=== PATIENT | male | born 1975 | race Caucasian/White ===

== ENCOUNTER 2018-02-16 07:16 | Day surgery (SDC) | payer OTHER ==
[~2018-02-16] VITALS: Ht 172.7 cm; Wt 81.6 kg
--- NOTE | ~2018-02-16 | OP ---
PATIENT NAME: BRANDON POWER MEDICAL RECORD: [id number] :75 LOCATION:D.OPS ADMISSION DATE: SURGEON: TREV AGUSTIN MD DATE OF OPERATION: 02/16/2018 PREOPERATIVE DIAGNOSES: 1. Symptomatic gallbladder polyp. 2. Hepatitis C. POSTOPERATIVE DIAGNOSES: 1. Symptomatic gallbladder polyp. 2. Hepatitis C. 3. Hepatomegaly. PROCEDURES: 1. Laparoscopic cholecystectomy. 2. A 14-gauge core needle liver biopsies. 3. Intraoperative cholangiogram without immediate surgeon interpretation. SURGEON: Trev Agustin MD VOICE PATHOLOGIST: None. BLOOD LOSS: Minimal. ANESTHESIA: General. COMPLICATIONS: None. The indication for the liver biopsy was hepatomegaly as well as hepatitis C. I noted no gross evidence of cirrhosis. The risks, possible complications, and alternatives to the procedure were explained to the patient. He elected to proceed. I specifically told him that his pain may not resolve with a cholecystectomy. OPERATIVE COURSE: The patient was conveyed to the operating room electively on 02/16/2018. General anesthesia was induced by the anesthesia staff. The abdomen was sterilely prepped and draped. A small skin kapil was accomplished in the left upper quadrant. A Veress needle was inserted through the skin kapil into the peritoneal cavity. CO2 insufflation was begun. Once a sufficient pneumoperitoneum had been achieved, a 5 mm trocar was inserted through an incision in the right upper quadrant. Under direct internal vision utilizing a television camera, a 12 mm trocar was inserted through an incision at the umbilicus. Another 5 mm trocar was inserted through an incision in the epigastrium. Another 5 mm trocar was inserted far laterally in the right upper quadrant. During insertion of the Veress needle and all trocars, there appeared to have been no injury to the bowels, any intraperitoneal or retroperitoneal structures. The indication for the liver biopsy was hepatomegaly. Under laparoscopic guidance, I percutaneously accessed the right upper quadrant utilizing a 14-gauge core needle liver biopsy device. Cores were obtained over the convexity of the liver. The biopsy sites were made hemostatic with the electrocautery. I then advanced a cholangiogram trocar. I punctured the fundus OPERATIVE REPORT [id number] BRANDON POWER of the gallbladder. I aspirated bile. I then injected dye. Under real time fluoroscopy, static fluoroscopic images were obtained. These are cholangiographic images that are sent to the radiologist for interpretation. I then aspirated bile and removed the cholangiogram trocar. The gallbladder was grasped and retracted cephalad. The infundibulum was grasped and retracted laterally. The critical view was identified. Blunt dissection was begun on the triangle of Calot. One cystic artery and one cystic duct were identified. These were clipped multiply and divided between clips. The gallbladder was then excised from its bed in the liver. It was placed within a bag retrieval device and was withdrawn through the umbilical fascial defect. The 12 mm trocar was replaced and the abdomen reinsufflated. I irrigated and aspirated in the right upper quadrant. There was no bleeding even at low pressure of 8. Utilizing the Corey-Constantin suture closure device and a 0 Vicryl suture, the umbilical fascia was closed. All the trocars were removed and the abdomen desufflated. The skin at the umbilicus was closed with interrupted 4-0 Vicryl Rapide sutures. The other skin incisions were closed with interrupted intracuticular 3-0 Vicryls. Benzoin and Steri-Strips were applied. The patient was then extubated and conveyed to the post-anesthesia care unit, where he was in stable condition. He will be dismissed with an analgesia script. There is no need for the patient to follow up with me in the office unless he develops a complication related to this operative procedure. The sutures at the umbilicus should fall out on their own. TRANSINT:[id number] Voice Confirmation ID: [id number] DOCUMENT ID: [id number] TREV AGUSTIN MD at 1047 CC: [id number] DICTATION DATE: 02/16/18 1424 CHILLER HAND: 02/16/18 1439 [facility] 02/16/18 [place] [id number]
[2018-02-16] MEDS ORDERED: ZOFRAN4 MG PO (08:22)
[2018-02-16] MEDS ORDERED: OMEPRAZOLE20 M1 PO (08:22)
[2018-02-16] MEDS ORDERED: BENTYL10 MG PO (08:22)
[2018-02-16] MEDS ORDERED: ZANTAC150 MG PO (08:23)
[2018-02-16 08:28] VITALS: BP 131/85; Ht 172.7 cm; Wt 81.6 kg
== END 2018-02-16 17:36 ==
LOC: D.OPS 07:16
DX: K81.1 Chronic cholecystitis (principal); B19.20 Unspecified viral hepatitis C without hepatic coma; K76.0 Fatty (change of) liver, not elsewhere classified; Z01.812 Encounter for preprocedural laboratory examination

== ENCOUNTER → 2018-09-20 06:38 | Outpatient (CLI) | payer OTHER ==
[2018-02-16 08:28] VITALS: BMI 27.4
[~2018-09-20 06:38] MED LIST: BENTYL10 MG PO; OMEPRAZOLE20 M1 PO; ZANTAC150 MG PO; ZOFRAN4 MG PO
== END | disposition home or self-care (01) ==
LOC: D.OPS 06:38
PROVIDERS: ATTEND Surgery
DX: K21.9 Gastro-esophageal reflux disease without esophagitis (principal)

== ENCOUNTER 2018-10-15 05:56 | Inpatient (IN) | payer MEDICAID ==
[2018-10-15] MEDS ORDERED: CLARITIN 10 MG10 MG PO (07:25)
[2018-10-15 07:36] VITALS: BP 121/71
[2018-10-15 07:37] LABS: HEMATOCRIT 44.5 % (42.0-54.0); HEMOGLOBIN 15.9 g/dL (13.5-17.5); MCH 30.9 pg (26.0-34.0); MCHC 35.7 g/dL (31.0-37.0); MCV 86.4 fL (80.0-100.0); MEAN PLATELET VOLUME 9.8 fL (7.4-10.4); RBC 5.15 10x6/uL (4.20-6.10); RDW 13.1 % (11.5-14.5); WBC 6.2 10x3/uL (4.8-10.8)
[2018-10-15 07:49] LABS: ANION GAP 15.9 mmol/L (8-16); BILIRUBIN - TOTAL 0.43 mg/dL (0.2-1.3); CALCIUM 9.2 mg/dL (8.5-10.1); CARBON DIOXIDE 23.5 mmol/L (21.0-32.0); CREATININE - SERUM 1.2 mg/dL (0.6-1.3); POTASSIUM - SERUM 4.4 mmol/L (3.5-5.1); PROTEIN - SERUM 7.9 g/dL (6.4-8.2)
[2018-10-15 17:06] VITALS: BP 129/75
--- NOTE | 2018-10-15 19:58 | NUR ---
PATIENT RESTING IN BED WITH GUARD AT BEDSIDE. BROUGHT PATIENT JELLO AND WATER PER HIS REQUEST. PATIENT AND GUARD DENY OTHER NEEDS AT THIS TIME. BED IN LOWEST POSITION AND CALL LIGHT WITHIN REACH. ENCOURAGED THE PATIENT TO CALL IF HE HAS NEEDS. WILL CONTINUE TO MONITOR.
[2018-10-15 20:00] VITALS: BP 118/73
[2018-10-16] VITALS: BP 123/76
[2018-10-16 04:00] VITALS: BP 124/83
[2018-10-16 05:26] LABS: BASOPHILS 0.1 % (0-2); EOSINOPHILS 0 % (0-7); HEMATOCRIT 39.2 % (42.0-54.0); HEMOGLOBIN 13.7 g/dL (13.5-17.5); IMMATURE GRANULOCYTES 0.4 % (0-5); LYMPHOCYTES 12.8 % (15-50); MCH 30.4 pg (26.0-34.0); MCHC 34.9 g/dL (31.0-37.0); MCV 86.9 fL (80.0-100.0); MEAN PLATELET VOLUME 9.8 fL (7.4-10.4); MONOCYTES 12.2 % (2-11); NEUTROPHILS 74.5 % (40-80); PLATELET COUNT 209 10x3/uL (130-400); RBC 4.51 10x6/uL (4.20-6.10); RDW 13.5 % (11.5-14.5)
[2018-10-16 06:12] LABS: ALBUMIN 3.6 g/dL (3.4-5.0); ANION GAP 13.8 mmol/L (8-16); BILIRUBIN - TOTAL 0.84 mg/dL (0.2-1.3); CALCIUM 8.4 mg/dL (8.5-10.1); CARBON DIOXIDE 25.1 mmol/L (21.0-32.0); CREATININE - SERUM 1.3 mg/dL (0.6-1.3); POTASSIUM - SERUM 3.9 mmol/L (3.5-5.1)
--- NOTE | 2018-10-16 07:05 | NUR ---
PATIENT RECIEVED RESTING IN BED. DAY ONE POST OP LAP HERNIA REPAIR. BANDAIDS C/D/I TO LAP SITES X6. PATIENT TOLERATING CLEAR LIQUIDS WELL. MORPHINE EDUCATION TRAINER FOR PAIN CONTROL. 02 SAT 98% ON RA. CL IN REACH, GUARD AT BEDSIDE
[2018-10-16 09:14] VITALS: BP 119/76
[2018-10-16] MEDS ORDERED: HYDROCODON-ACE1 EAC7 PO (11:31)
--- NOTE | 2018-10-16 14:00 | NUR ---
IV REMOVED WITH NO REDNESS OR EDEMA AT SITE. DISCHARGE INSTRUCTIONS GIVEN TO PATIENT WITH PATIENT VOICING UNDERSTANDING. PATIENT TAKEN BY WHEELCHAIR TO [facility] FOR TRANSPORT TO [facility]
--- NOTE | 2018-10-31 11:49 | OP ---
PATIENT NAME: BRANDON POWER MEDICAL RECORD: [id number] :75 LOCATION:D.[facility] ADMISSION DATE:10/16/18 SURGEON: TREV AGUSTIN MD DATE OF OPERATION: 10/15/2018 ASSISTANCE NOTE I assisted Dr. Clement Tovar with a laparoscopic paraesophageal hernia repair and laparoscopic Krystal fundoplication. The patient has a type 3 paraesophageal hernia as well as gastroesophageal reflux disease. The complexity of the procedure necessitated that two attending surgeons be present. My involvement in the operation includes insertion of some trocars. Running the camera sometime. Irrigating and aspirating. Taking down some of the short gastric vessels along the greater curve of the stomach with the Harmonic scalpel. Dissection of the left tess of the diaphragm. Some blunt dissection up in the mediastinum. Some dissection with the Harmonic scalpel up in the mediastinum as well. Mobilization of a portion of the esophagus. Retraction of a portion of the esophagus. Retraction of suture as Dr. Tovar was performing the hiatal hernia repair as well as a Krystal fundoplication. Closure of some of the trocar sites. I was present throughout the entire operation. TRANSINT:[id number] Voice Confirmation ID: [id number] DOCUMENT ID: [id number] TREV AGUSTNI MD at 1149 CC: [id number] DICTATION DATE: 10/27/18 1004 SINTER FEEDER: 10/27/18 1039 [facility] 10/16/18 [facility] [address] [place] [id number]
== END 2018-10-16 14:02 | DRG 328 ==
LOC: D.OPS 05:56 → D.MS 05:56 → D.OPS 08:00 → D.MS 11:58 → D.OPS 10-16 11:11 → D.MS 10-16 13:40
PROVIDERS: Anesthesiology; Surgery; ADMIT Surgery; ATTEND Surgery
PROC: 0DV44ZZ Restriction of Esophagogastric Junction, Percutaneous Endoscopic Approach (ICD-10-PCS; principal; 2018-10-15 08:00)
PROC: 0BQT4ZZ Repair Diaphragm, Percutaneous Endoscopic Approach (ICD-10-PCS; 2018-10-15 08:00)
DX: K44.9 Diaphragmatic hernia without obstruction or gangrene (principal); K21.9 Gastro-esophageal reflux disease without esophagitis